=== PATIENT | female | born 1930 | race Caucasian/White ===

== ENCOUNTER 2017-10-06 21:30 | Inpatient (IN) ==
[2017-10-07] MEDS ORDERED: HEPARIN 5,000 UNIT/1 ML VIAL SUBCUT ONE (00:07)
[2017-10-07] MEDS ORDERED: POLYVINYL ALCOHOL 1.4% OPH SOLN 15 ML BOTTLE BOTH EYES PRN (01:06)
[2017-10-07] MEDS ORDERED: hydrALAZINE 20 MG/1 ML VIAL IV PRN (02:28)
[2017-10-07] MEDS ORDERED: SODIUM CHLORIDE 0.45% 1,000 ML IV SCH (02:35)
[2017-10-07] MEDS: MORPHINE 4 MG/1 ML VIAL IV PRN ×2 (05:35→10:17)
[2017-10-07 05:40] LABS: Basophils % 0.3 % (0.0-0.8); Eosinophils # 0.2 10*3/uL (0.0-0.87); Eosinophils % 1.7 % (0.00-10.9); Hematocrit 35.1 VOL% (35.7-47.0); Immature Granulocytes % 0.6 %; Immature Granulocytes Absolute 0.08 #; Lymphocytes # 1.7 10*3/uL (1.4-4.0); Lymphocytes % 13.2 % (21.3-54.2); Mean Corpuscular HGB Conc 31.3 GM/DL (32-36); Mean Corpuscular Hemoglobin 28 PG (27-34); Mean Corpuscular Volume 87.8 FL (87-102); Mean Platelet Volume 11.5 FL (9.6-12.0); Monocytes # 0.7 10*3/uL (0.11-0.8); Monocytes % 5.8 % (1.7-12.7); Neutrophils % 78.4 % (38.7-73.9); Platelet Count 225 T/CUMM (130-400); Red Cell Distribution Width 14.5 % (9.3-17.3); White Blood Count 12.8 T/CUMM (4-12)
[2017-10-07 06:08] LABS: Albumin 3.2 G/DL (3.4-5.0); Bilirubin,Total 0.8 MG/DL (0.2-1.0); Calcium 9.7 MG/DL (8.5-10.1); Osmolality,Calculated 280.8 MOS/KG (273-304); Potassium 3.6 MMOL/L (3.5-5.1); Total Protein 7.4 G/DL (6.4-8.3)
[2017-10-07] MEDS: BRIMONIDINE 0.1% OPH SOLN 5 ML BOTTLE LEFT EYE SCH ×3 (08:47→20:48)
[2017-10-07] MEDS ORDERED: NON-FORMULARY MEDICATION (Umeclidinium Brm/Vilanterol Tr [Anoro Ellipta] 1 PUFF) INH SCH (09:00)
[2017-10-07] MEDS ORDERED: CLINDAMYCIN INJ 900 MG in PREMIX 1 EACH IV ONE (10:00)
[2017-10-07 10:13] LABS: Apearance,Urine CLEAR (Clear); Bacteria,Urine Occasional /HPF (Few); Bilirubin,Urine Negative (Negative); Blood, Urine Negative (Negative); Glucose,Urine (UA) Negative (Negative); Hyaline Casts,Urine 5 /LPF (0-3); Ketones,Urine Negative (Negative); Mucus,Urine Occasional /LPF (Occasional); Nitrite,Urine Negative (Negative); Protein,Urine Negative; RBC,Urine 1 /HPF (0-4); Squamous Epithelial Cell,Urine Occasional /HPF (0-10); Urine Color Yellow (Yellow); Urine Specific Gravity 1.011 (1.001-1.035); Urine Urobilinogen < 2.0 EU/DL (0.2-1.0); WBC,Urine 5 /HPF (0-6)
[2017-10-07] MEDS: POTASSIUM CHLORIDE 10 MEQ TABLET PO SCH ×2 (10:15→20:49)
[2017-10-07] MEDS ORDERED: COLCHICINE 0.6 MG TABLET PO PRN (10:15)
[2017-10-07] MEDS ORDERED: DEXTROSE 50% 25 GM/50 ML VIAL IV PRN (10:16)
[2017-10-07] MEDS ORDERED: GLUCAGON 1 MG VIAL IM PRN (10:16)
[2017-10-07] MEDS: LEVOTHYROXINE 125 MCG TABLET PO SCH (10:30)
[2017-10-07] MEDS ORDERED: ONDANSETRON 4 MG/2 ML VIAL IV PRN (13:11)
[2017-10-07] MEDS ORDERED: LACTULOSE 20 GM/30 ML UDCUP PO PRN (13:11)
[2017-10-07] MEDS ORDERED: TEMAZEPAM 7.5 MG CAPSULE PO PRN (13:11)
[2017-10-07] MEDS ORDERED: PROMETHAZINE 25 MG/1 ML VIAL IM PRN (13:11)
[2017-10-07] MEDS ORDERED: MAGNESIUM HYDROXIDE SUSP 30 ML UDCUP PO PRN (13:11)
[2017-10-07] MEDS ORDERED: diphenhydrAMINE CAP 25 MG CAPSULE PO PRN (13:11)
[2017-10-07] MEDS ORDERED: BISACODYL 10 MG SUPP RECTAL PRN (13:11)
[2017-10-07] MEDS ORDERED: MORPHINE 4 MG/1 ML VIAL IV PRN (13:15)
[2017-10-07] MEDS ORDERED: SUGAMMADEX 200 MG/2 ML VIAL IV ONE (14:20)
[2017-10-07] MEDS ORDERED: fentaNYL 100 MCG/2 ML VIAL ONE (14:42)
[2017-10-07] MEDS ORDERED: PROPOFOL 200 MG/20 ML VIAL IV ONE (14:42)
[2017-10-07] MEDS ORDERED: SEVOFLURANE 1 UNIT/15 MINUTE INH ONE (14:42)
[2017-10-07] MEDS ORDERED: ROCURONIUM 100 MG/10 ML VIAL IV ONE (14:43)
[2017-10-07] MEDS ORDERED: ePHEDrine 50 MG/ML AMP ONE (14:43)
[2017-10-07] MEDS ORDERED: ONDANSETRON 4 MG/2 ML VIAL ONE (14:44)
[2017-10-07] MEDS: PANTOPRAZOLE 40 MG TABLET PO SCH (17:20)
[2017-10-07] MEDS: ROSUVASTATIN 10 MG TABLET PO SCH (17:20)
[2017-10-07] MEDS: FUROSEMIDE 40 MG TABLET PO SCH (17:21)
[2017-10-07] MEDS: POLYETHYLENE GLYCOL POWDER 17 GM PACK PO SCH (17:22)
[2017-10-07] MEDS: ALLOPURINOL 100 MG TABLET PO SCH (17:22)
[2017-10-07] MEDS: INSULIN LISPRO 100 UNIT/ML SUBCUT SCH (17:35)
[2017-10-07] MEDS: LACTATED RINGERS 1,000 ML IV SCH ×2 (20:42→20:50)
[2017-10-07] MEDS: metFORMIN 500 MG TABLET PO SCH (20:48)
[2017-10-07] MEDS: FAMOTIDINE 20 MG TABLET PO SCH (20:48)
[2017-10-07] MEDS: METHENAMINE HIPPURATE 1 GM TABLET PO SCH (20:48)
[2017-10-07] MEDS: CLINDAMYCIN INJ 900 MG in PREMIX 1 EACH IV SCH (20:48)
[2017-10-07] MEDS: MULTIVITAMIN (OCUVITE) TABLET PO SCH (20:48)
[2017-10-07] MEDS: DILTIAZEM 60 MG TABLET PO SCH (20:49)
[2017-10-07] MEDS: DOCUSATE SODIUM 100 MG CAPSULE PO SCH (20:49)
[2017-10-07] MEDS ORDERED: DILTIAZEM 60 MG TABLET PO SCH (21:00)
[2017-10-08] MEDS: CLINDAMYCIN INJ 900 MG in PREMIX 1 EACH IV SCH (03:15)
[2017-10-08 05:49] LABS: Basophils % 0.3 % (0.0-0.8); Eosinophils # 0.1 10*3/uL (0.0-0.87); Eosinophils % 0.7 % (0.00-10.9); Hematocrit 30.5 VOL% (35.7-47.0); Hemoglobin 9.5 GM/DL (12.0-16.0); Immature Granulocytes % 0.6 %; Immature Granulocytes Absolute 0.08 #; Lymphocytes # 1.3 10*3/uL (1.4-4.0); Lymphocytes % 9.4 % (21.3-54.2); Mean Corpuscular HGB Conc 31.1 GM/DL (32-36); Mean Corpuscular Hemoglobin 28 PG (27-34); Mean Corpuscular Volume 88.9 FL (87-102); Mean Platelet Volume 11.6 FL (9.6-12.0); Monocytes % 7.1 % (1.7-12.7); Neutrophils % 81.9 % (38.7-73.9); Platelet Count 204 T/CUMM (130-400); Red Blood Count 3.43 MC/CUMM (3.8-5.5); Red Cell Distribution Width 14.7 % (9.3-17.3); White Blood Count 13.5 T/CUMM (4-12)
[2017-10-08 06:08] LABS: Calcium 8.9 MG/DL (8.5-10.1); Potassium 3.9 MMOL/L (3.5-5.1)
[2017-10-08] MEDS: FONDAPARINUX 2.5 MG/0.5 ML SYRINGE SUBCUT SCH (06:33)
[2017-10-08] MEDS: PANTOPRAZOLE 40 MG TABLET PO SCH (09:03)
[2017-10-08] MEDS: MULTIVITAMIN (OCUVITE) TABLET PO SCH ×2 (09:03→20:43)
[2017-10-08] MEDS: FERROUS SULFATE 325 MG TABLET PO SCH (09:03)
[2017-10-08] MEDS: FUROSEMIDE 40 MG TABLET PO SCH (09:03)
[2017-10-08] MEDS: MELOXICAM 7.5 MG TABLET PO SCH (09:03)
[2017-10-08] MEDS: metFORMIN 500 MG TABLET PO SCH ×2 (09:04→20:03)
[2017-10-08] MEDS: LEVOTHYROXINE 125 MCG TABLET PO SCH (09:04)
[2017-10-08] MEDS: METHENAMINE HIPPURATE 1 GM TABLET PO SCH ×2 (09:04→20:43)
[2017-10-08] MEDS: ALLOPURINOL 100 MG TABLET PO SCH (09:04)
[2017-10-08] MEDS: POTASSIUM CHLORIDE 10 MEQ TABLET PO SCH ×2 (09:04→20:43)
[2017-10-08] MEDS: ROSUVASTATIN 10 MG TABLET PO SCH (09:04)
[2017-10-08] MEDS: INSULIN LISPRO 100 UNIT/ML SUBCUT SCH ×2 (09:05→17:40)
[2017-10-08] MEDS: DOCUSATE SODIUM 100 MG CAPSULE PO SCH ×2 (09:05→20:43)
[2017-10-08] MEDS: POLYETHYLENE GLYCOL POWDER 17 GM PACK PO SCH (09:06)
[2017-10-08] MEDS: BRIMONIDINE 0.1% OPH SOLN 5 ML BOTTLE LEFT EYE SCH ×3 (09:12→20:43)
[2017-10-08] MEDS: FAMOTIDINE 20 MG TABLET PO SCH ×2 (09:13→20:43)
[2017-10-08] MEDS ORDERED: ACETAMINOPHEN 325 MG TABLET PO PRN (13:12)
[2017-10-08] MEDS: SODIUM CHLORIDE 0.9% 1,000 ML IV SCH (16:11)
[2017-10-08] MEDS: DILTIAZEM 60 MG TABLET PO SCH (20:43)
[2017-10-09] MEDS: SODIUM CHLORIDE 0.9% 1,000 ML IV SCH ×2 (03:13→09:03)
[2017-10-09 06:39] LABS: Basophils % 0.3 % (0.0-0.8); Eosinophils # 0.2 10*3/uL (0.0-0.87); Eosinophils % 1.3 % (0.00-10.9); Hematocrit 26.5 VOL% (35.7-47.0); Hemoglobin 8.3 GM/DL (12.0-16.0); Immature Granulocytes % 0.4 %; Immature Granulocytes Absolute 0.06 #; Lymphocytes # 1.6 10*3/uL (1.4-4.0); Lymphocytes % 11.5 % (21.3-54.2); Mean Corpuscular HGB Conc 31.3 GM/DL (32-36); Mean Corpuscular Hemoglobin 28 PG (27-34); Mean Corpuscular Volume 87.7 FL (87-102); Mean Platelet Volume 11.3 FL (9.6-12.0); Monocytes # 0.9 10*3/uL (0.11-0.8); Monocytes % 6.4 % (1.7-12.7); Neutrophils # 11.1 10*3/uL (1.4-7.4); Neutrophils % 80.1 % (38.7-73.9); Platelet Count 192 T/CUMM (130-400); Red Blood Count 3.02 MC/CUMM (3.8-5.5); Red Cell Distribution Width 14.9 % (9.3-17.3); White Blood Count 13.9 T/CUMM (4-12)
[2017-10-09 07:10] LABS: Calcium 8.5 MG/DL (8.5-10.1); Osmolality,Calculated 283.7 MOS/KG (273-304); Potassium 4.1 MMOL/L (3.5-5.1)
[2017-10-09] MEDS: FONDAPARINUX 2.5 MG/0.5 ML SYRINGE SUBCUT SCH (07:20)
[2017-10-09] MEDS: INSULIN LISPRO 100 UNIT/ML SUBCUT SCH ×2 (08:32→17:09)
[2017-10-09] MEDS: DOCUSATE SODIUM 100 MG CAPSULE PO SCH ×2 (09:01→20:37)
[2017-10-09] MEDS: ROSUVASTATIN 10 MG TABLET PO SCH (09:01)
[2017-10-09] MEDS: FERROUS SULFATE 325 MG TABLET PO SCH (09:01)
[2017-10-09] MEDS: metFORMIN 500 MG TABLET PO SCH ×2 (09:02→20:37)
[2017-10-09] MEDS: MULTIVITAMIN (OCUVITE) TABLET PO SCH ×2 (09:02→20:37)
[2017-10-09] MEDS: POTASSIUM CHLORIDE 10 MEQ TABLET PO SCH ×2 (09:02→20:37)
[2017-10-09] MEDS: FAMOTIDINE 20 MG TABLET PO SCH ×2 (09:02→20:37)
[2017-10-09] MEDS: POLYETHYLENE GLYCOL POWDER 17 GM PACK PO SCH (09:02)
[2017-10-09] MEDS: LEVOTHYROXINE 125 MCG TABLET PO SCH (09:02)
[2017-10-09] MEDS: METHENAMINE HIPPURATE 1 GM TABLET PO SCH ×2 (09:02→20:37)
[2017-10-09] MEDS: ALLOPURINOL 100 MG TABLET PO SCH (09:02)
[2017-10-09] MEDS: PANTOPRAZOLE 40 MG TABLET PO SCH (09:02)
[2017-10-09] MEDS: MELOXICAM 7.5 MG TABLET PO SCH (09:02)
[2017-10-09] MEDS: BRIMONIDINE 0.1% OPH SOLN 5 ML BOTTLE LEFT EYE SCH ×3 (09:03→20:37)
[2017-10-09] MEDS: DILTIAZEM 60 MG TABLET PO SCH (20:37)
[2017-10-10] MEDS: FONDAPARINUX 2.5 MG/0.5 ML SYRINGE SUBCUT SCH (04:40)
[2017-10-10 06:06] LABS: Basophils % 0.3 % (0.0-0.8); Eosinophils # 0.1 10*3/uL (0.0-0.87); Eosinophils % 0.9 % (0.00-10.9); Hematocrit 30.4 VOL% (35.7-47.0); Hemoglobin 9.5 GM/DL (12.0-16.0); Immature Granulocytes % 0.6 %; Immature Granulocytes Absolute 0.08 #; Lymphocytes # 1.4 10*3/uL (1.4-4.0); Lymphocytes % 10.4 % (21.3-54.2); Mean Corpuscular HGB Conc 31.3 GM/DL (32-36); Mean Corpuscular Hemoglobin 27 PG (27-34); Mean Corpuscular Volume 86.9 FL (87-102); Mean Platelet Volume 11.5 FL (9.6-12.0); Monocytes # 0.9 10*3/uL (0.11-0.8); Monocytes % 6.3 % (1.7-12.7); Neutrophils # 11.2 10*3/uL (1.4-7.4); Neutrophils % 81.5 % (38.7-73.9); Platelet Count 226 T/CUMM (130-400); Red Cell Distribution Width 15.1 % (9.3-17.3); White Blood Count 13.7 T/CUMM (4-12)
[2017-10-10 06:41] LABS: Calcium 8.4 MG/DL (8.5-10.1); Osmolality,Calculated 287.4 MOS/KG (273-304); Potassium 4.1 MMOL/L (3.5-5.1)
[2017-10-10] MEDS: INSULIN LISPRO 100 UNIT/ML SUBCUT SCH ×2 (07:32→16:17)
[2017-10-10] MEDS: POLYETHYLENE GLYCOL POWDER 17 GM PACK PO SCH (08:31)
[2017-10-10] MEDS: ROSUVASTATIN 10 MG TABLET PO SCH (08:34)
[2017-10-10] MEDS: LEVOTHYROXINE 125 MCG TABLET PO SCH (08:36)
[2017-10-10] MEDS: DOCUSATE SODIUM 100 MG CAPSULE PO SCH (08:36)
[2017-10-10] MEDS: FERROUS SULFATE 325 MG TABLET PO SCH (08:36)
[2017-10-10] MEDS: MULTIVITAMIN (OCUVITE) TABLET PO SCH (08:37)
[2017-10-10] MEDS: METHENAMINE HIPPURATE 1 GM TABLET PO SCH (08:37)
[2017-10-10] MEDS: MELOXICAM 7.5 MG TABLET PO SCH (08:37)
[2017-10-10] MEDS: metFORMIN 500 MG TABLET PO SCH (08:37)
[2017-10-10] MEDS: POTASSIUM CHLORIDE 10 MEQ TABLET PO SCH (08:37)
[2017-10-10] MEDS: PANTOPRAZOLE 40 MG TABLET PO SCH (08:38)
[2017-10-10] MEDS: FAMOTIDINE 20 MG TABLET PO SCH (08:38)
[2017-10-10] MEDS: ALLOPURINOL 100 MG TABLET PO SCH (08:38)
[2017-10-10] MEDS: BRIMONIDINE 0.1% OPH SOLN 5 ML BOTTLE LEFT EYE SCH ×2 (09:39→15:22)
[2017-10-10 17:02] VITALS: BP 153/83
== END 2017-10-10 17:15 | DRG 470 ==
LOC: N.3E 21:56
PROVIDERS: ADMIT Internal Medicine; ATTEND Internal Medicine